=== PATIENT | female | born 1985 | race Caucasian/White ===

== ENCOUNTER 2019-02-18 10:01 | Emergency (ER) | payer OTHER ==
[2019-02-18] MEDS: HYDROCODONE/APAP (5/325) TAB PO (11:00)
[2019-02-18] MEDS: ONDANSETRON (ODT) 4 MG TAB ODT (11:00)
[2019-02-18] MEDS: KETOROLAC 60 MG INJ IM (11:03)
== END 2019-02-18 12:56 | disposition home or self-care (01) ==
LOC: FTE 10:01
DX: S80.02XA Contusion of left knee, initial encounter (principal); S79.912A Unspecified injury of left hip, initial encounter; R10.2 Pelvic and perineal pain; V49.40XA Driver injured in collision with unspecified motor vehicles in traffic accident, initial encounter
CPT/HCPCS: 72170; 73510; 73562; 81025; 96372; 99284-25